=== PATIENT | male | born 1985 | race Caucasian/White ===

== ENCOUNTER 2019-11-11 18:36 | Emergency (ER) | payer MEDICAID, SELFPAY ==
--- NOTE | 2019-11-11 18:52 | XR_ITS ---
PROCEDURE: XR TIBIA FIBULA LT 2V CLINICAL INDICATION: injury Posttraumatic pain COMPARISON: No exams were available for comparison FINDINGS: No fracture or dislocation. No lytic or blastic change. There is normal mineralization. The joint spaces are well-preserved. No significant degenerative/arthritic changes. No erosive changes evident. Other findings:None. IMPRESSION: No acute findings. Dictated by: Aidna Bernard MD 11/11/2019 22:43 Electronically signed by Aidan Bernard MD in [place] 11/11/2019 22:43
[2019-11-11 18:59] VITALS: BP 130/81; PULSE 74; RESP 20; TEMP 36.8; O2SAT 98; BMI 20.3
--- NOTE | 2019-11-11 19:45 | HMH.EDUTC ---
[facility] [place] Impression: Contusion of leg, left Qualifiers: Encounter type: initial encounter Qualified Code(s): S80.12XA - Contusion of left lower leg, initial encounter Disposition: Home, Self-Care Condition on Discharge: Good Instructions: DI for Leg Pain Additional Instructions: Rest the extremity, apply ice for 15 minutes as tolerated three or four times per day, Wear the denisha wrap for compression, Elevate the extremity as tolerated while you are resting. Take ibuprofen for pain. I sent in a prescription to your pharmacy. Follow up with Dr. Landis (orthopedics) if you continue to have issues. I put in a referral but you need to call her office and schedule an appointment. Follow up with your regular doctor. GO TO THE ER FOR ANY WORSENING SYMPTOMS Prescriptions: Ibuprofen [Ibuprofen 600mg Tablet] 600 mg PO Q6HP PRN #30 tab PRN Reason: Mild Pain Transmission Status: Received by [id number] Referrals: Johnna Osorio [Primary Care Provider] - Lois Landis MD [Physician] - Time of Disposition: 19:48 Medical Decision Making - Medical Records Medical records reviewed: No: I reviewed the patient's medical records. - Matthew Inquiry Pt receiving controlled substance: No Vital Signs: 11/11/19 18:59 11/11/19 19:56 Temperature 98.3 F 98.3 F Temperature Source Oral Pulse Rate 74 Pulse Rate [Right Brachial] 74 Respiratory Rate 20 20 Blood Pressure 130/81 Blood Pressure [Right Arm] 130/81 Blood Pressure Mean [Right Arm] 97 Blood Pressure Source [Right Arm] Automatic Cuff Blood Pressure Position [Right Arm] Sitting 02 Sat by Pulse Oximetry 98 Oxygen Delivery Method Room Air - Radiology Data #1 Image(s): Tib/Fib Image Reviewed: Yes I reviewed the patient's radiology image, Yes I have reviewed radiologist's interpretation Preliminary Findings: No Fracture Seen PROCEDURE: XR TIBIA FIBULA LT 2V CLINICAL INDICATION: injury Posttraumatic pain COMPARISON: No exams were available for comparison FINDINGS: No fracture or dislocation. No lytic or blastic change. There is normal mineralization. The joint spaces are well-preserved. No significant degenerative/arthritic changes. No erosive changes evident. Other findings:None. IMPRESSION: No acute findings. Dictated by: Aidan Bernard MD 11/11/2019 22:43 Electronically signed by Aidan Bernard MD in [place] 11/11/2019 22:43 [facility] [place] - General Stated complaint: AO Hit l leg on hay wagon Time Seen by Provider: 11/11/19 19:00 Mode of Arrival: Ambulatory Source of Information: Patient Limitations: No Limitations Description of Symptoms (Recalled from Triage Doc. by RN): PATIENT C/O KNOT IN LEFT LOWER LEG AFTER HITTING IT ON A HAY WAGON A FEW DAYS AGO. STATES THE KNOT FEELS LIKE IT IS MOVING AND IS PAINFUL HEENT Symptoms (Recalled from RN notes): No Resp Symptoms (Recalled from RN notes): No Skin Symptoms (Recalled from RN notes): Yes MS Symptoms (Recalled from RN notes): Yes Functional Status (Recalled from RN notes): WNL - History of Present Illness Provider Complaint: He states that he accidentily bumped his right lower leg (reyes area) on a hay wagon yesterday. Since then he has had pain and swelling in the area. He is walking fine on the leg, but it does hurt to bear weight. - Related Data Home Medications Medication Instructions Recorded Confirmed Buprenorphine HCl/Naloxone HCl 2 each SL DAILY 11/11/19 11/11/19 [Buprenorphin-Naloxon 8-2 mg Sl] Previous Rx's Medication Instructions Recorded Ibuprofen [Ibuprofen 600mg 600 mg PO Q6HP PRN #30 tab 11/11/19 Tablet] Allergies Allergy/AdvReac Type Severity Reaction Status Date / Time erythromycin base Allergy Verified 11/11/19 19:04 - Worker's Comp Is this a Worker's Comp case?: No [facility] History - Hepatitis A Screen Drug use history?: No High risk sexual behaviors?: No History of sexually transmit
[2019-11-11 19:56] VITALS: BP 130/81; PULSE 74; RESP 20; TEMP 36.8; O2SAT 98
== END 2019-11-11 19:58 | disposition home or self-care (01) ==
PROVIDERS: Emergency Provider Nurse Practitioner Family; PCP Nurse Practitioner Family
DX: S80.12XA Contusion of left lower leg, initial encounter (principal); W22.09XA Striking against other stationary object, initial encounter; Y92.73 Farm field as the place of occurrence of the external cause
CPT/HCPCS: 73590; 99201

== ENCOUNTER 2021-02-12 23:29 | Emergency (ER) | payer MEDICAID, SELFPAY ==
[2021-02-12 23:31] VITALS: BP 131/91; PULSE 70; RESP 18; TEMP 36.9; O2SAT 97; BMI 24.0
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
[2021-02-13 00:07] VITALS: BP 131/31; PULSE 68; RESP 16; TEMP 36.8
== END 2021-02-13 00:11 | disposition home or self-care (01) ==
PROVIDERS: Emergency Provider Emergency Medicine; PCP Nurse Practitioner Family
DX: H16.133 Photokeratitis, bilateral (principal); W89.8XXA Exposure to other man-made visible and ultraviolet light, initial encounter; X32.XXXA Exposure to sunlight, initial encounter; Y92.89 Other specified places as the place of occurrence of the external cause; F17.210 Nicotine dependence, cigarettes, uncomplicated
CPT/HCPCS: 99281

== ENCOUNTER → 2021-03-18 19:40 | Outpatient (CLI) | payer MEDICAID, SELFPAY ==
[2021-03-18 20:43] LABS: Basophils % 0.6 % (0.1-2.0); Eosinophils # 0.2 K/mm3 (0.0-0.4); Eosinophils % 2.4 % (0.1-12.0); Hematocrit 44.2 % (42.0-52.0); Hemoglobin 14.3 g/dL (14.1-18.0); Lymphocytes # 2.3 K/mm3 (0.7-4.5); Lymphocytes % 34.3 % (10-50); Mean Corpuscular HGB Conc 32.4 g/dL (31.8-35.4); Mean Corpuscular Volume 92.5 fl (80-94); Mean Platelet Volume 9.6 fl (7.4-10.4); Monocytes # 0.5 K/mm3 (0.1-1.0); Monocytes % 7.3 % (1.7-9.3); Neutrophils # 3.7 K/mm3 (1.8-7.8); Neutrophils % 55.5 % (37.0-80.0); Platelet Count 372 K/mm3 (142-424); Red Blood Count 4.77 M/mm3 (4.60-6.20); Red Cell Distribution Width 13.7 % (11.5-17.5); White Blood Count 6.7 K/mm3 (4.8-10.8)
[2021-03-18 21:15] LABS: Alanine Aminotransferase 39 U/L (12-78); Albumin Level 4.7 g/dl (3.5-5.0); Albumin/Globulin Ratio 1.6 (1.1-1.8); Alkaline Phosphatase 78 U/L (38-126); Anion Gap 13.3 mEq/L (5-15); Aspartate Amino Transferase 36 U/L (17-59); Bilirubin,Total 0.3 mg/dl (0.2-1.3); Blood Urea Nitrogen 13 mg/dl (9-20); Calcium 9.8 mg/dl (8.4-10.2); Carbon Dioxide 29 mmol/L (22.0-30.0); Chloride 103 mmol/L (98-107); Chol/HDL Ratio 3.8 (1-3.5); Cholesterol 204 mg/dl (140-200); Estimated Glomerular Filt Rate 97 ml/min (>60); GFR (African American) 117 ML/MIN (>60); Globulin 2.9 g/dL (1.3-3.2); Glucose 104 mg/dl (74-100); HDL Cholesterol 54 mg/dl (40-60); Potassium 4.3 mmoL/L (3.5-5.1); Sodium 141 mmol/L (136-145); Total Protein,Serum 7.6 g/dl (6.3-8.2); Triglycerides 228 mg/dl (30-150); VLDL Cholesterol 46 mg/dL (0-40)
[2021-03-18 21:26] LABS: Direct LDL Cholesterol 110.55 mg/dL (100-129)
[2021-03-18 21:57] LABS: Free T4 (Free Thyroxine) 1.17 ng/dl (0.78-2.19)
[2021-03-18 22:02] LABS: 25-OH Vitamin D, Total 44.3 ng/mL (30-100)
== END ==
PROVIDERS: Visit Provider Emergency Medicine
DX: R53.83 Other fatigue (principal); E55.9 Vitamin D deficiency, unspecified
CPT/HCPCS: 80053; 80061; 82306; 84439; 84443; 85025

== ENCOUNTER → 2022-06-23 11:56 | Outpatient (CLI) | payer MEDICAID, SELFPAY ==
--- NOTE | 2022-06-23 12:01 | XR_ITS ---
FINAL REPORT CLINICAL HISTORY: NON-SPECIFIC REACTION TO [facility]MM[facility]ITY COMPARISON: September 2016 FINDINGS: PA and lateral views of the chest were obtained. The cardiac and mediastinal silhouettes are within normal limits. The lungs are hyperinflated but clear. There is no pleural effusion or pneumothorax. No acute osseous abnormality is identified. IMPRESSION: No radiographic evidence of acute cardiac or pulmonary disease. Reviewed, Interpreted and Dictated by Mayda Soto MD Transcribed by Christiano Elliott Authenticated and [facility]
== END ==
PROVIDERS: PCP Emergency Medicine; Visit Provider Nurse Practitioner Family
DX: R76.12 Nonspecific reaction to cell mediated immunity measurement of gamma interferon antigen response without active tuberculosis (principal)
CPT/HCPCS: 71046

== ENCOUNTER 2022-10-12 15:27 | Emergency (ER) | payer SELFPAY ==
[2022-10-12] VITALS (8 sets, daily range): BP systolic 111–139; BP diastolic 76–98; PULSE 63–75; RESP 15–19; TEMP 36.6–36.8; O2SAT 97–100; BMI 23.7
--- NOTE | 2022-10-12 15:27 | ECG_ITS ---
APPROVED REPORT Exam: Resting ECG HR:59 bpm ECG Measurements Heart Rate 59 AXES IN 151 P 54 QRSd 109 QRS 67 QT 402 T 49 QTc 400 Conclusion SINUS BRADYCARDIA INCOMPLETE RIGHT BUNDLE BRANCH BLOCK [90+ ms QRS DURATION, TERMINAL R IN V1/V2, 40+ ms S IN I/aVL/V4/V5/V6] NONSPECIFIC ST ELEVATION [0.05+ mV ST ELEVATION] BORDERLINE ECG UNCONFIRMED REPORT Electronically signed by : Ferdinand Means MD 10/14/2022 22:09:08
--- NOTE | 2022-10-12 15:31 | PC.NURSE ---
1529 DR PADRON AT BEDSIDE
--- NOTE | 2022-10-12 15:36 | XR_ITS ---
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 HX asthma. TECHNIQUE: Imaging protocol: Radiologic exam of the chest. Views: 1 view. COMPARISON: CR XR CHEST 2V 06/23/2022 12:16 PM, 09/21/2016 FINDINGS: Lungs: Focal region of nodularity right upper lobe between the 6th and 7th ribs demonstrated on the 09/21/2016 examination and most likely corresponds to a vessel seen on end. Pleural spaces: Unremarkable. No pleural effusion. No pneumothorax. Heart/Mediastinum: Unremarkable. No cardiomegaly. Bones/joints: See Lungs finding. IMPRESSION: No evidence of acute cardiopulmonary disease.
[2022-10-12 15:43] LABS: Basophils # 0.1 K/mm3 (0-0.2); Basophils % 0.6 % (0.1-2.0); Eosinophils # 0.3 K/mm3 (0.0-0.4); Eosinophils % 4.2 % (0.1-12.0); Hematocrit 41.7 % (42.0-52.0); Hemoglobin 13.6 g/dL (14.1-18.0); Lymphocytes # 2.8 K/mm3 (0.7-4.5); Mean Corpuscular HGB Conc 32.5 g/dL (31.8-35.4); Mean Corpuscular Hemoglobin 28.6 pg (27.0-31.2); Mean Corpuscular Volume 88.1 fl (80-94); Mean Platelet Volume 7.6 fl (7.4-10.4); Monocytes # 0.5 K/mm3 (0.1-1.0); Monocytes % 6.8 % (1.7-9.3); Neutrophils # 3.7 K/mm3 (1.8-7.8); Neutrophils % 50.4 % (37.0-80.0); Platelet Count 302 K/mm3 (142-424); Red Blood Count 4.73 M/mm3 (4.60-6.20); Red Cell Distribution Width 13.3 % (11.5-17.5); White Blood Count 7.4 K/mm3 (4.8-10.8)
[2022-10-12 15:46] LABS: Chloride 97 mmol/L (98-107); Sodium 140 mmol/L (136-145)
[2022-10-12 15:49] LABS: Alanine Aminotransferase 27 U/L (12-78); Albumin Level 4.1 g/dl (3.5-5.0); Albumin/Globulin Ratio 1.4 (1.1-1.8); Alkaline Phosphatase 90 U/L (38-126); Aspartate Amino Transferase 29 U/L (17-59); Bilirubin,Total 0.4 mg/dl (0.2-1.3); Blood Urea Nitrogen 14 mg/dl (9-20); Carbon Dioxide 33 mmol/L (22.0-30.0); Creatinine Clearance Estimated 149 mL/min (50-200); Estimated Glomerular Filt Rate 110 ml/min (>60); GFR (African American) 133 ML/MIN (>60); Globulin 2.9 g/dL (1.3-3.2)
[2022-10-12 15:50] LABS: Calcium 8.8 mg/dl (8.4-10.2); Glucose 108 mg/dl (74-100)
--- NOTE | 2022-10-12 15:59 | PC.NURSE ---
XR AT BEDSIDE
[2022-10-12 16:02] LABS: Troponin I < 0.01 ng/ml (0.00-0.034)
--- NOTE | 2022-10-12 16:33 | HMH.EDGENADL ---
Discharge Plan Disposition Patient Disposition: Home, Self-Care Condition: Good Chief Complaint: Chest Pain Prescriptions Prescriptions: No Action gabapentin 600 mg tablet 600 mg PO TID Qty: 90 2RF buprenorphine-naloxone 1 EACH tablet, sublingual 2 each SL DAILY Referrals Follow up/Referrals: Dante Colmenares MD [Primary Care Provider] - See instructions Clinical Impressions Clinical Impression: Chest pain Discharge ED Provider: Froilan Roberts General Adult HPI General Chief complaint: Chest Pain Stated complaint: chest pain Time Seen by Provider: 10/12/22 15:29 Mode of Arrival: Ambulatory Limitations: No Limitations Description of Symptoms (Recalled from ER Triage Doc. by RN): PT C/O INTERMITTENT CHEST PAIN THAT STARTED A COUPLE HOURS AGO STARTED ON RIGHT SIDE OF CHEST, RADIATES TO NECK. RESOLVED AT PRESENT. HAS HAD SIMILAR PAIN IN PAST History of Present Illness HPI narrative: 36yo M evaluated for chest pain that started a few hours ago. Reports that right-sided radiates to his neck. No symptoms current at admission. Similar symptoms in the past that were intermittent. Patient continues to smoke daily. Denies cardiac history. No exertional dyspnea. No nausea, shortness of breath. Related Data Home Medications Medication Instructions Recorded Confirmed buprenorphine 8 mg-naloxone 2 mg 2 each sublingual DAILY ADDICTION 11/11/19 07/21/22 sublingual tablet Previous Rx's Medication Instructions Recorded gabapentin 600 mg tablet 600 mg PO TID #90 tabs 07/21/22 Allergies Allergy/AdvReac Type Severity Reaction Status Date / Time erythromycin base Allergy Verified 07/21/22 11:27 [facility] Disclaimer: The information contained in this section may have been updated after the patient was seen, as this information can be updated by other users. Surgical History Hx of tonsillectomy Family History Other No significant family history Social History Smoking Status: Current every day smoker tobacco type: cigarettes packs per day: 1 and smokeless tobacco alcohol intake: never substance use type: former substance user current occupational status: employed Travel in the last 8 weeks: None household members: other housing: house ROS Obtained: Yes Systems reviewed as appropriate & no additional complaints except as documented Physical Exam General General appearance: alert and in no apparent distress Head Head exam: atraumatic Eye Eye exam: Present normal appearance Neck Neck exam: Present trachea midline Chest Chest inspection: Present symmetric chest wall rise Respiratory Respiratory exam: Present normal lung sounds bilaterally; Absent respiratory distress Cardiovascular Cardiovascular exam: Present regular rate, normal rhythm and normal heart sounds Abdominal Exam Abdominal exam: Present soft and normal bowel sounds; Absent distention or tenderness Neurological Exam Neurological exam: Present alert and oriented X3 Skin Skin exam: Present warm and dry Medical Decision Making Medical Records Medical records reviewed: Yes I reviewed the patient's medical records. Matthew Inquiry Pt receiving controlled substance: No Vital Signs: 10/12/22 15:29 10/12/22 16:00 10/12/22 16:30 Temperature 98.2 F Temperature Source Oral Pulse Rate 65 64 Pulse Rate [Apical] 63 Respiratory Rate 18 16 15 Blood Pressure 111/82 123/86 Blood Pressure [Right Arm] 132/90 Blood Pressure Mean 92 92 Blood Pressure Mean [Right Arm] 104 Blood Pressure Source [Right Arm] Automatic Cuff Blood Pressure Position [Right Arm] Sitting 02 Sat by Pulse Oximetry 100 100 98 Oxygen Delivery Method Room Air Room Air Room Air 10/12/22 17:00 10/12/22 17:30 Temperature Temperature Source Pulse Rate 75 66 Pul
--- NOTE | 2022-10-12 16:44 | PC.NURSE ---
ROUNDED ON PT, REQUESTS TO GO HOME DR PADRON AT BEDSIDE
--- NOTE | 2022-10-12 17:28 | PC.NURSE ---
REPEAT TROP SENT TO LAB FOR 2 HOUR TROP PER ED MD
[2022-10-12 17:56] LABS: Troponin I < 0.01 ng/ml (0.00-0.034)
== END 2022-10-12 18:04 | disposition home or self-care (01) ==
PROVIDERS: Emergency Provider Family Medicine; PCP Emergency Medicine
DX: R07.9 Chest pain, unspecified (principal); M54.2 Cervicalgia; F17.210 Nicotine dependence, cigarettes, uncomplicated
CPT/HCPCS: 71045; 80053; 84484; 85025; 93005; 99285

== ENCOUNTER → 2022-12-29 23:00 | Outpatient (CLI) | payer MEDICAID, SELFPAY ==
[2022-12-29 18:41] LABS: Basophils % 0.5 % (0.1-2.0); Eosinophils # 0.3 K/mm3 (0.0-0.4); Eosinophils % 6.5 % (0.1-12.0); Hematocrit 41.6 % (42.0-52.0); Hemoglobin 13.5 g/dL (14.1-18.0); Lymphocytes # 1.9 K/mm3 (0.7-4.5); Lymphocytes % 38.5 % (10-50); Mean Corpuscular HGB Conc 32.4 g/dL (31.8-35.4); Mean Corpuscular Hemoglobin 29.2 pg (27.0-31.2); Mean Platelet Volume 9.4 fl (7.4-10.4); Monocytes # 0.3 K/mm3 (0.1-1.0); Monocytes % 6.7 % (1.7-9.3); Neutrophils # 2.4 K/mm3 (1.8-7.8); Neutrophils % 47.7 % (37.0-80.0); Platelet Count 288 K/mm3 (142-424); Red Blood Count 4.62 M/mm3 (4.60-6.20); Red Cell Distribution Width 13.5 % (11.5-17.5)
[2022-12-29 18:42] LABS: Alanine Aminotransferase 33 U/L (12-78); Albumin Level 4.6 g/dl (3.5-5.0); Albumin/Globulin Ratio 1.7 (1.1-1.8); Alkaline Phosphatase 85 U/L (38-126); Anion Gap 12.2 mEq/L (5-15); Aspartate Amino Transferase 36 U/L (17-59); Bilirubin,Total 0.6 mg/dl (0.2-1.3); Blood Urea Nitrogen 11 mg/dl (9-20); Calcium 9.7 mg/dl (8.4-10.2); Carbon Dioxide 27 mmol/L (22.0-30.0); Chloride 105 mmol/L (98-107); Chol/HDL Ratio 3.7 (1-3.5); Cholesterol 195 mg/dl (140-200); Estimated Glomerular Filt Rate 95 ml/min (>60); GFR (African American) 116 ML/MIN (>60); Globulin 2.7 g/dL (1.3-3.2); Glucose 143 mg/dl (74-100); HDL Cholesterol 53 mg/dl (40-60); Potassium 4.2 mmoL/L (3.5-5.1); Sodium 140 mmol/L (136-145); Total Protein,Serum 7.3 g/dl (6.3-8.2); Triglycerides 138 mg/dl (30-150); VLDL Cholesterol 28 mg/dL (0-40)
[2022-12-29 18:54] LABS: Direct LDL Cholesterol 105.81 mg/dL (100-129)
[2022-12-29 18:58] LABS: 25-OH Vitamin D, Total 34.1 ng/mL (30-100)
[2022-12-29 19:02] LABS: T4 (Thyroxine) 8.2 ug/dl (5.53-11.0)
[2022-12-29 19:15] LABS: Thyroid Stimulating Hormone 1.58 uIU/mL (0.465-4.68)
== END ==
PROVIDERS: PCP Emergency Medicine; Visit Provider Emergency Medicine
DX: M79.2 Neuralgia and neuritis, unspecified (principal); Z79.899 Other long term (current) drug therapy
CPT/HCPCS: 80053; 80061; 82306; 84436; 84443; 85025

== ENCOUNTER → 2023-03-31 10:41 | Outpatient (CLI) | payer OTHER, SELFPAY ==
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
== END ==
PROVIDERS: PCP Emergency Medicine; Visit Provider Emergency Medicine
DX: V89.2XXA Person injured in unspecified motor-vehicle accident, traffic, initial encounter (principal); R51.9 Headache, unspecified; M54.2 Cervicalgia; M54.9 Dorsalgia, unspecified
CPT/HCPCS: 70450; 72110

== ENCOUNTER 2024-05-05 21:07 | Emergency (ER) | payer SELFPAY ==
[2024-05-05] VITALS (7 sets, daily range): BP systolic 113–133; BP diastolic 66–84; PULSE 67–72; RESP 18; TEMP 36.6; O2SAT 97–100; BMI 26.1
--- NOTE | 2024-05-05 21:22 | HMH.EDGENADL ---
Discharge Plan Disposition Patient Disposition: Home, Self-Care Prescriptions Prescriptions: New epinephrine 0.3 mg/0.3 mL auto-injector 0.3 mg IM Q10M PRN (Reason: anaphylaxis) Qty: 2 0RF Rx Instructions: for 2 doses prednisone 20 mg tablet 20 mg PO DAILY 3 Days Qty: 3 0RF No Action gabapentin 600 mg tablet 600 mg PO TID Qty: 90 0RF buprenorphine-naloxone 1 EACH tablet, sublingual 2 each SL DAILY Referrals Follow up/Referrals: Erika Palomares PA [Primary Care Provider] - See instructions Activity Restrictions/Add. Instructions Additional Instructions/Restrictions: At this time it was felt you are safe to be discharged home. If new or worsening symptoms please do not hesitate to return the emergency department. Please take your medications as prescribed. Clinical Impressions Clinical Impression: Allergic reaction Print Language Print Language: Romansh Discharge ED Provider: Krishan Chino General Adult HPI General Chief complaint: Allergic Reaction Stated complaint: hives all over body, swelling/stiff to L shoulder Time Seen by Provider: 05/05/24 21:17 Mode of Arrival: Ambulatory Source of Information: Patient Limitations: No Limitations Description of Symptoms (Recalled from ER Triage Doc. by RN): Patient broke out in rash around 8:15pm; Upper body is red and left shoulder is swollen; Only thing he has had that is different is a bourbon ball History of Present Illness HPI narrative: Patient is a 38-year-old male with no pertinent past medical history presents emergency department for evaluation of hives. Onset was acute since 8:15 PM. He had a bourbon ball and did have some which was earlier this evening. He has eaten oysters before without consequence however this is first time he is eating a bourbon ball. Since then he has developed hives extending over his trunk and extremities causing present here for continued evaluation. No airway involvement currently. He does feel his lips tingling. No other acute complaints at this time. Related Data Home Medications ?Medication ?Instructions ?Recorded ?Confirmed buprenorphine 8 mg-naloxone 2 mg 2 each sublingual DAILY ADDICTION 11/11/19 08/31/23 sublingual tablet Previous Rx's ?Medication ?Instructions ?Recorded gabapentin 600 mg tablet 600 mg PO TID #90 tabs 02/16/24 epinephrine 0.3 mg/0.3 mL 0.3 mg (0.3 mL) IM Q10M PRN 05/05/24 injection, auto-injector anaphylaxis #2 ea prednisone 20 mg tablet 20 mg PO DAILY allergic reaction 3 05/05/24 days #3 tabs Allergies Allergy/AdvReac Type Severity Reaction Status Date / Time erythromycin base Allergy Verified 08/31/23 11:19 [facility] Disclaimer: The information contained in this section may have been updated after the patient was seen, as this information can be updated by other users. Surgical History Hx of tonsillectomy Family History Other No significant family history Social History Smoking Status: Current every day smoker tobacco type: cigarettes packs per day: 1 and smokeless tobacco alcohol intake: never substance use type: former substance user current occupational status: employed household members: other housing: house Other Medical History Have you received the Flu Vaccine for this season: No Have you received the Pneumonia Vaccine: No ROS Obtained: Yes Systems reviewed as appropriate & no additional complaints except as documented Physical Exam General General appearance: alert and in no apparent distress Head Head exam: atraumatic and normocephalic Eye Eye exam: Present PERRL and EOMI ENT ENT exam: Present mucous membranes moist Neck Neck exam: Present normal inspection Chest Chest inspection: Present normal inspection and symmetric chest wall rise Respiratory Respiratory exam: Present normal lung sounds bilaterally; Absent respiratory distress, wheezes or stridor Cardiovascular Cardiovascular exam: Present regular rate and normal rhythm Abdominal Exam Abdominal exam: Present soft; Absent tenderness Extremities Exam Extremities exam: Present normal inspection Neurological Exam Neurological exam: Present alert Psychiatric Psychiatric exam: Present normal affect Skin Skin exam: Present warm, dry and rash (Scattered hives most predominant on the trunk and back, Nikolsky negative) Medical Decision Making Medical Records Screening: Per USPSTF and CDC recommendations, given the prevalence of disease in our region, it is our hospital?s policy to screen for HIV and viral Hepatitis for all patients aged 18 and over and those with ongoing risk factors. Matthew Inquiry Pt receiving controlled substance: No Vital Signs: 05/05/24 21:08 05/05/24 21:31 05/05/24 22:21 Temperature 97.9 F Temperature Source Oral Pulse Rate 68 71 Pulse Rate [Right Radial] 72 Respiratory Rate 18 Blood Pressure 133/84 123/78 Blood Pressure [Right Arm] 130/83 Blood Pressure Mean [Right Arm] 98 Blood Pressure Source [Right Arm] Automatic Cuff Blood Pressure Position [Right Arm] Supine 02 Sat by Pulse Oximetry 99 100 99 Oxygen Delivery Method Room Air 05/05/24 22:31 05/05/24 23:00 Temperature Temperature Source Pulse Rate 67 67 Pulse Rate [Right Radial] Respiratory Rate Blood Pressure 120/75 113/66 Blood Pressure [Right Arm] Blood Pressure Mean [Right Arm] Blood Pressure Source [Right Arm] Blood Pressure Position [Right Arm] 02 Sat by Pulse Oximetry 98 97 Oxygen Delivery Method Lab Data Lab Results 05/05/24 21:45: WBC 4.9, RBC 4.87, Hgb 14.3, Hct 42.7, MCV 87.6, MCH 29.3, MCHC 33.5, RDW 13.7, Plt Count 318, MPV 7.8, Neut % (Auto) 47.1, Lymph % (Auto) 49.2, [place] % (Auto) 2.0, Eos % (Auto) 1.0, Baso % (Auto) 0.7, Neut # (Auto) 2.3, Lymph # (Auto) 2.4, [place] # (Auto) 0.1, Eos # (Auto) 0.1, Baso # (Auto) 0.0, Sodium 140, Potassium 3.3 L, Chloride 106, Carbon Dioxide 27, Anion Gap 10.3, BUN 18, Creatinine 0.90, Estimated Creat Clear 143, Estimated GFR 95, Est GFR ( Amer) 115, Glucose 140 H, Calcium 9.1, Total Bilirubin 0.3, AST 36, ALT 45, Alkaline Phosphatase 79, Total Protein 7.0, Albumin 4.2, Globulin 2.8, Albumin/Globulin Ratio 1.5, HIV 1&2 Antibody Rapid Nonreactive 05/05/24 21:45 05/05/24 21:45 Orders (Tests/Meds): ED MEDICATIONS Discontinued Medications Generic Name Dose Route Start Last Admin Trade Name Freq PRN Reason Stop Dose Admin Famotidine 20 mg 05/05/24 21:21 05/05/24 21:40 Famotidine 20mg Tablet PO 05/05/24 21:22 20 mg ONCE ONE Administration Methylprednisolone Sodium Succinate 125 mg 05/05/24 21:21 05/05/24 21:41 Methylprednisolone Sod Succ 125mg Vial IV 05/05/24 21:22 125 mg ONCE ONE Administration ORDERS Category Date Time Status CBC w/Auto Diff [Complete Blood Count Auto Diff] Stat Lab 05/05/24 21:45 Completed CMP [Comprehensive Metabolic Panel] Stat Lab 05/05/24 21:45 Completed HIV (1&2) Antibody Rapid Stat Lab 05/05/24 21:45 Completed Hep C Ab with Reflex to RNA Stat Lab 05/05/24 21:45 Received Medical Decision Narrative: In summary patient 38-year-old male past medical history described above who presents emergency department for evaluation of hives. Patient is hemodynamically stable nontoxic-appearing upon arrival, afebrile. No new medications, no new exposures with exception of bourbon ball, he did ingest oysters this evening also however has tolerated them previously. Regardless he does not meet criteria for anaphylaxis and only has singular system involvement with hives. He has taken 50 mg of Benadryl prior to arrival. IV will be anchored and patient was given methylprednisolone and famotidine will undergo observation. The patient was placed in observation status at 9:25 PM. Medical necessity for observational status is serial observations in the setting of allergic reaction. The patient was provided serial reevaluations while awaiting results. During observation I reevaluated the patient and he had significant resolving symptoms resting comfortably in bed. Given this I feel the patient is appropriate for outpatient management at this time will be discharged with EpiPen and course of steroids. Total time in observation was 1 hour and 45 minutes. Critical Care Critical Care Time Critical Care Time: No
[2024-05-05] MEDS: FAMOTIDINE 20MG TABLET 20 MG PO (21:40)
[2024-05-05] MEDS: METHYLPREDNISOLONE SOD SUCC 125MG VIAL 125 MG IV (21:41)
[2024-05-05 21:57] LABS: Basophils % 0.7 % (0.1-2.0); Eosinophils # 0.1 K/mm3 (0.0-0.4); Hematocrit 42.7 % (42.0-52.0); Hemoglobin 14.3 g/dL (14.1-18.0); Lymphocytes # 2.4 K/mm3 (0.7-4.5); Lymphocytes % 49.2 % (10-50); Mean Corpuscular HGB Conc 33.5 g/dL (31.8-35.4); Mean Corpuscular Hemoglobin 29.3 pg (27.0-31.2); Mean Corpuscular Volume 87.6 fl (80-94); Mean Platelet Volume 7.8 fl (7.4-10.4); Monocytes # 0.1 K/mm3 (0.1-1.0); Neutrophils # 2.3 K/mm3 (1.8-7.8); Neutrophils % 47.1 % (37.0-80.0); Platelet Count 318 K/mm3 (142-424); Red Blood Count 4.87 M/mm3 (4.60-6.20); Red Cell Distribution Width 13.7 % (11.5-17.5); White Blood Count 4.9 K/mm3 (4.8-10.8)
[2024-05-05 22:18] LABS: Albumin Level 4.2 g/dl (3.5-5.0); Chloride 106 mmol/L (98-107); Potassium 3.3 mmoL/L (3.5-5.1); Sodium 140 mmol/L (136-145)
[2024-05-05 22:20] LABS: Blood Urea Nitrogen 18 mg/dl (9-20); Creatinine Clearance Estimated 143 mL/min (50-200); Estimated Glomerular Filt Rate 95 ml/min (>60); GFR (African American) 115 ML/MIN (>60)
[2024-05-05 22:21] LABS: Alanine Aminotransferase 45 U/L (12-78); Albumin/Globulin Ratio 1.5 (1.1-1.8); Alkaline Phosphatase 79 U/L (38-126); Anion Gap 10.3 mEq/L (5-15); Aspartate Amino Transferase 36 U/L (17-59); Bilirubin,Total 0.3 mg/dl (0.2-1.3); Calcium 9.1 mg/dl (8.4-10.2); Carbon Dioxide 27 mmol/L (22.0-30.0); Globulin 2.8 g/dL (1.3-3.2); Glucose 140 mg/dl (74-100)
[2024-05-05 22:38] LABS: HIV (1&2) Antibody Rapid NONREACTIVE (NONREACTIVE)
[2024-05-07 03:36] LABS: HCV Ab Non Reactive (Non Reactive)
== END 2024-05-05 23:34 | disposition home or self-care (01) ==
PROVIDERS: Emergency Provider Emergency Medicine; PCP Physician Assistant
DX: T78.40XA Allergy, unspecified, initial encounter (principal); R21 Rash and other nonspecific skin eruption; R22.32 Localized swelling, mass and lump, left upper limb
CPT/HCPCS: 80053; 85025; 86803; 87389; 99283; J2919